=== PATIENT | female | born 1990 | race Hispanic/Latino ===

== ENCOUNTER 2017-04-02 17:23 | Emergency (ER) | payer OTHER ==
[2017-04-02 17:53] VITALS: BMI 37.8
[2017-04-02 17:57] VITALS: RESP 18; TEMP 98.2; O2SAT 100
--- NOTE | 2017-04-02 18:20 | ED PDOC ---
Arrival/HPI - General Chief Complaint: ENT Problem Time Seen by Provider: 04/02/17 17:59 Historian: Patient - History of Present Illness Narrative History of Present Illness (Text): 04/02/17 18:25 A 27 year old female presents to the emergency department complaining of 2 week duration of neck pain, left side worse than right. Patient reports pain radiates to head and began as an earache. Patient notes given Bactrim from doctor, and earache got better, but neck pain worsened. Patient reports has cervical lymphadenopathy but felt worse, had a CAT scan head done. Patient is a half pack a day smoker, occasional drinker but denies drug use. Patient denies any other complaints at this time. Time/Duration: Other (2 weeks) Symptom Onset: Sudden Symptom Course: Unchanged Activities at Onset: Rest Modifying Factors (Text): Bactrim helped earache, neck pain worse Context: Home Associated Symptoms (Text): 04/02/17 19:05 2 week history of left-sided greater than right-sided neck pain. She had a left sided earache which resolved with Bactrim DS. The pain radiates up into her head. She had a negative CT scan of the cervical spine ordered by her PMD. She is not getting any better and was directed to the emergency department for further evaluation and treatment. She does not appear to be in any distress.. Past Medical History - Provider Review Nursing Documentation Reviewed: Yes - Infectious Disease Hx of Infectious Diseases: None - Past Medical History Past Medical History: No Previous - Cardiac Hx [place]: No - Pulmonary Hx Respiratory Disorders: No - Neurological HX Cerebrovascular Accident: No Hx Seizures: No - HEENT Hx HEENT Disorder: No - Renal Hx Renal Disorder: No - Endocrine/Metabolic Hx Endocrine Disorders: No - Hematological/Oncological Hx Blood Disorders: No - Integumentary Hx Dermatological Disorder: No - Musculoskeletal/Rheumatological Hx Back Pain: No Hx Falls: No Hx Fractures: No - Gastrointestinal Hx Gastrointestinal Disorders: No - Genitourinary/Gynecological Hx Genitourinary Disorders: Yes Other/Comment: R Pelvic cyst found on current admission, endometriosis - Psychiatric Hx Psychophysiologic Disorder: No Hx Substance Use: No - Past Surgical History Past Surgical History: No Previous - Surgical History Other/Comment: sx on R sided ovarian cyst. - Anesthesia Hx Anesthesia: Yes Hx Anesthesia Reactions: No Hx Malignant Hyperthermia: No - Suicidal Assessment Feels Threatened In Home Enviroment: No Family/Social History - Physician Review Nursing Documentation Reviewed: Yes Family/Social History: No Known Family HX Smoking Status: Light Smoker < 10 Cigarettes Daily Hx Alcohol Use: No Hx Substance Use: No Hx Substance Use Treatment: No Allergies/Home Meds Allergies/Adverse Reactions: Allergies Penicillins Adverse Reaction (Verified 04/02/17 17:52) RASH Home Medications: Home Meds Medication Instructions Recorded Confirmed Norgestimate-Ethinyl Estradiol 1 tab PO DAILY 05/01/16 04/02/17 [Sprintec 35 Mcg-0.25 mg] Review of Systems - Physician Review All systems were reviewed & negative as marked: Yes - Review of Systems Constitutional: absent: Fatigue, Fevers Eyes: absent: Vision Changes ENT: Normal Respiratory: absent: SOB, Cough, Sputum Cardiovascular: Normal Gastrointestinal: Normal Genitourinary Female: Normal Musculoskeletal: Neck Pain (radiating to head) Neurological: Headache. absent: Dizziness, Focal Weakness, Gait Changes, Speech Changes, Facial Droop, Disequilibrium Physical Exam Vital Signs Reviewed: Yes Vital Signs Temp Pulse Resp BP Pulse Ox 04/02/17 17:56 98.2 F 77 18 134/92 H 100 Temperature: Afebrile Blood Pressure: Hypertensive Pulse: Regular Respiratory Rate: Normal Appearance: Positive for: Well-Appearing, Non-Toxic, Comfortable Pain Distress: None Mental Status: Positive for: Alert and Oriented X 3 - Systems Exam Head: Present: Atraumatic, Normocephalic Pupils: Present: PERRL Extroacular Muscles: Present: EOMI Conjunctiva: Present: Normal Ears: Present: NORMAL TM, Normal Canal. No: Erythema Mouth: Present: Moist Mucous Membranes Pharnyx: No: ERYTHEMA, EXUDATE, TONSILS ENLARGED Neck: Present: Normal Range of Motion. No: Meningeal Signs, MIDLINE TENDERNESS , Paraspinal Tenderness, Lymphadenopathy Respiratory/Chest: Present: Clear to Auscultation, Good Air Exchange. No: Respiratory Distress, Accessory Muscle Use Cardiovascular: Present: Regular Rate and Rhythm, Normal S1, S2. No: Murmurs Abdomen: Present: Normal Bowel Sounds. No: Tenderness, Distention, Peritoneal Signs Back: Present: Normal Inspection Upper Extremity: Present: Normal Inspection. No: Cyanosis, Edema Lower Extremity: Present: Normal Inspection. No: Edema Neurological: Present: GCS=15, CN II-XII Intact, Speech Normal, Motor Func Grossly Intact Skin: Present: Warm, Dry, Normal Color. No: Rashes Psychiatric: Present: Alert, Oriented x 3, Normal Insight, Normal Concentration Medical Decision Making ED Course and Treatment: 04/02/17 18:18 Impression: A 27 year old female with neck pain radiating to head. Plan: -- CT head -- labs -- Toradol -- Reassess and disposition Prior Visits: Notes and results from previous visits were reviewed. Patient last reported to the emergency department on 07/10/17 for evaluation of nausea and diarrhea. Patient was discharged. Progress Notes: CT head: Creator : Thomas Mcgill MD 04/02/2017 19:01 IMPRESSION: No acute hemorrhage. 04/02/17 20:15 On re-evaluation, patient feels better and is in no acute distress. I have discussed the results and plan with the patient, who expresses understanding. Patient in agreement with plan to be discharged home. Patient is stable for discharge. Patient was instructed to follow up with physician or return if symptoms worsen or new concerning symptoms arise. - Lab Interpretations Lab Results: 04/02/17 19:00 04/02/17 19:00 Lab Results 04/02/17 19:00: Sodium 134, Potassium 4.3, Chloride 104, Carbon Dioxide 22, Anion Gap 12, BUN 10, Creatinine 0.6, Est GFR ( Amer) > 60, Est GFR (Non- Af Amer) > 60, Random Glucose 82, Calcium 9.1, Magnesium 1.9, Total Bilirubin 0.3, AST 19, ALT 32, Alkaline Phosphatase 45, Total Protein 7.5, Albumin 3.9, Globulin 3.6, Albumin/Globulin Ratio 1.1 04/02/17 19:00: WBC 6.0 D, RBC 4.19, Hgb 12.1, Hct 35.2 L, MCV 84.0, MCH 28.9, MCHC 34.4, RDW 12.6, Plt Count 272, MPV 9.2, Gran % 57.2, Lymph % (Auto) 31.9, [place] % (Auto) 6.0, Eos % (Auto) 3.7, Baso % (Auto) 1.2, Gran # 3.45, Lymph # 1.9 , [place] # 0.4, Eos # 0.2, Baso # 0.07 I have reviewed the lab results: Yes - RAD Interpretation Radiology Orders: 04/02/17 18:14 HEAD W/O CONTRAST [CT] Stat - Medication Orders Current Medication Orders: Discontinued Medications Ketorolac Tromethamine (Toradol) 30 mg IVP ONCE ONE Stop: 04/02/17 18:16 Last Admin: 04/02/17 19:25 Dose: 30 mg - Scribe Statement The provider has reviewed the documentation as recorded by the Shady Quiroz Provider Scribe Attestation: All medical record entries made by the Scribe were at my direction and personally dictated by me. I have reviewed the chart and agree that the record accurately reflects my personal performance of the history, physical exam, medical decision making, and the department course for this patient. I have also personally directed, reviewed, and agree with the discharge instructions and disposition. Disposition/Present on Arrival - Present on Arrival Any Indicators Present on Arrival: No History of DVT/PE: No History of Uncontrolled Diabetes: No Urinary Catheter: No History of Decub. Ulcer: No History Surgical Site Infection Following: None - Disposition Have Diagnosis and Disposition been Completed?: Yes Diagnosis: Cervical muscle strain Disposition: HOME/ ROUTINE Disposition Time: 20:21 Patient Plan: Discharge Patient Problems: Current Active Problems Problem Status Onset Cervical muscle strain Acute Condition: GOOD Discharge Instructions (ExitCare): Cervical Strain (DC) Additional Instructions: Moist heat. Follow-up with PMD. Follow-up in the ER as needed. Prescriptions: Cyclobenzaprine [Flexeril] 5 mg PO Q8 #15 tab Naproxen [Naprosyn] 500 mg PO BID #14 tab Referrals: Karen Mcdermott MD [Primary Care Provider] - Follow up with primary
--- NOTE | 2017-04-02 19:01 | CT ---
PROCEDURE: CT HEAD WITHOUT CONTRAST. HISTORY: MELVIN COMPARISON: 05/01/2016 TECHNIQUE: Axial computed tomography images were obtained through the head/brain without intravenous contrast. Radiation dose: Total exam DLP = 677 mGy-cm. This CT exam was performed using one or more of the following dose reduction techniques: Automated exposure control, adjustment of the mA and/or kV according to patient size, and/or use of iterative reconstruction technique. FINDINGS: HEMORRHAGE: No intracranial hemorrhage. BRAIN: No mass effect or edema. No atrophy or chronic microvascular ischemic changes. 1 centimeter right choroidal fissure cyst. VENTRICLES: Unremarkable. No hydrocephalus. CALVARIUM: Unremarkable. PARANASAL SINUSES: Unremarkable as visualized. No significant inflammatory changes. MASTOID AIR CELLS: Unremarkable as visualized. No inflammatory changes. OTHER FINDINGS: None. IMPRESSION: No acute hemorrhage.
[2017-04-02 19:10] LABS: ADD MANUAL DIFF? NO
[2017-04-02 19:29] LABS: ALB/GLOB RATIO 1.1 (1.1-1.8); ALKALINE PHOSPHATASE 45 U/L (38-133); ALT/SGPT 32 U/L (7-56); AST/SGOT 19 U/L (15-39); BILIRUBIN,TOTAL 0.3 mg/dL (0.2-1.3); BLOOD UREA NITROGEN 10 mg/dL (7-21); CALCIUM 9.1 mg/dL (8.4-10.5); CARBON DIOXIDE 22 mmol/L (21-33); CHLORIDE 104 mmol/L (98-107); GFR AFRICAN-AMERICAN > 60; GLUCOSE,RANDOM 82 mg/dL (70-110); MAGNESIUM 1.9 mg/dL (1.7-2.2); POTASSIUM 4.3 mmol/L (3.6-5.0); SODIUM 134 mmol/L (132-148); TOTAL PROTEIN 7.5 g/dL (5.8-8.3)
[2017-04-02 19:31] LABS: BASO # 0.07 K/mm3 (0.0-2.0); BASO % 1.2 % (0.0-3.0); EOS # 0.2 (0.0-0.7); EOS % 3.7 % (1.5-5.0); GRAN # 3.45 (1.4-6.5); GRAN % 57.2 % (50.0-68.0); HEMATOCRIT 35.2 % (36.0-48.0); LYMPH # 1.9 (1.2-3.4); LYMPH % 31.9 % (22.0-35.0); MEAN CORPUSCULAR HEMOGLOBIN 28.9 pg (25.0-35.0); MEAN CORPUSCULAR HGB CONC 34.4 g/dl (31.0-37.0); MEAN PLATELET VOLUME 9.2 fl (7.0-11.0); MONO # 0.4 (0.1-0.6); PLATELET COUNT 272 10^3/uL (120.0-450.0); RED CELL DISTRIBUTION WIDTH 12.6 % (11.5-14.5)
[2017-04-02 21:28] VITALS: BP 129/84; PULSE 70
== END 2017-04-02 20:46 | disposition home or self-care (01) ==
LOC: ED 17:23
DX: S16.1XXA Strain of muscle, fascia and tendon at neck level, initial encounter (principal); X58.XXXA Exposure to other specified factors, initial encounter
CPT/HCPCS: 70450; 80053; 83735; 85025; 96374; 99283; J1885

== ENCOUNTER 2018-09-17 13:39 | Emergency (ER) | payer BC ==
[2018-09-17 13:40] VITALS: BMI 37.8
[2018-09-17 14:19] VITALS: RESP 18
--- NOTE | 2018-09-17 14:42 | ED PDOC ---
Arrival/HPI - General Chief Complaint: Headache Time Seen by Provider: 09/17/18 14:11 Historian: Patient - History of Present Illness Narrative History of Present Illness (Text): 09/17/18 14:33 28 year old female, with no significant past medical history and gestation of 16 weeks, presents to the Emergency Department complaining of headache and mouth sores since past couple days. Patient states headache starts from the back and radiates to the entirety of her head, similar to symptoms experienced for migraines. Additionally, patient informs sores to the top of her mouth but denies any other associated symptoms. Patient informs feeling anxious throughout her "worrying something is medically wrong with her". Patient reports having a MRI performed in jul with no significant findings. As per patient, her recent US shows normal gestational age and no complications. Patient denies any other associated somatic complaints. Patient denies any fever, chills, nausea, vomiting, diarrhea, abdominal pain, chest pain, shortness of breath, cough, dizziness, neck pain, back pain, vaginal discharge, vaginal bleeding, any obstetrics complaints or any other complaints. PMD: Dr. Moyer Neurologist: Dr. Rice 09/17/18 16:56 Time/Duration: < week Symptom Onset: Gradual Symptom Course: Unchanged Activities at Onset: Light Context: Home Past Medical History - Provider Review Nursing Documentation Reviewed: Yes - Infectious Disease Hx of Infectious Diseases: None - Reproductive Menopause: No - Past Medical History Past Medical History: No Previous - Cardiac Hx Cardiac Disorders: No Hx [place]: No - Pulmonary Hx Respiratory Disorders: No - Neurological HX Cerebrovascular Accident: No Hx Seizures: No - HEENT Hx HEENT Disorder: No - Renal Hx Renal Disorder: No - Endocrine/Metabolic Hx Endocrine Disorders: No - Hematological/Oncological Hx Blood Disorders: No - Integumentary Hx Dermatological Disorder: No - Musculoskeletal/Rheumatological Hx Back Pain: No Hx Falls: No Hx Fractures: No - Gastrointestinal Hx Gastrointestinal Disorders: No - Genitourinary/Gynecological Hx Genitourinary Disorders: Yes Other/Comment: R Pelvic cyst found on current admission, endometriosis - Psychiatric Hx Psychophysiologic Disorder: No Hx Substance Use: No - Past Surgical History Past Surgical History: No Previous - Surgical History Other/Comment: sx on R sided ovarian cyst. - Anesthesia Hx Anesthesia: Yes Hx Anesthesia Reactions: No Hx Malignant Hyperthermia: No - Suicidal Assessment Feels Threatened In Home Enviroment: No Family/Social History - Physician Review Nursing Documentation Reviewed: Yes Family/Social History: Unknown Family HX Smoking Status: Light Smoker < 10 Cigarettes Daily Hx Alcohol Use: No Hx Substance Use: No Hx Substance Use Treatment: No Allergies/Home Meds Allergies/Adverse Reactions: Allergies Penicillins Allergy (Verified 03/21/18 11:16) RASH Home Medications: Home Meds Medication Instructions Recorded Confirmed RX: No Known Home Med 09/17/18 09/17/18 Review of Systems - Physician Review All systems were reviewed & negative as marked: Yes - Review of Systems Constitutional: absent: Fevers Eyes: absent: Vision Changes ENT: Other (Mouth sores) Respiratory: absent: SOB, Cough Cardiovascular: absent: Chest Pain Gastrointestinal: absent: Abdominal Pain, Diarrhea, Nausea, Vomiting Genitourinary Female: absent: Vaginal Bleeding, Vaginal Discharge Musculoskeletal: absent: Back Pain, Neck Pain Skin: absent: Rash Neurological: Headache. absent: Dizziness Physical Exam Vital Signs Reviewed: Yes Vital Signs Temp Pulse Resp BP Pulse Ox 09/17/18 14:14 97.8 F 97 H 18 138/87 98 Temperature: Afebrile Blood Pressure: Normal Pulse: Regular Respiratory Rate: Normal Appearance: Positive for: Well-Appearing, Non-Toxic, Comfortable Pain Distress: None Mental Status: Positive for: Alert and Oriented X 3 - Systems Exam Head: Present: Atraumatic, Normocephalic Pupils: Present: PERRL Extroacular Muscles: Present: EOMI Conjunctiva: Present: Normal Mouth: Present: Moist Mucous Membranes, Other (Vesicular sores on the upper oropharynx noted) Neck: Present: Normal Range of Motion Respiratory/Chest: Present: Clear to Auscultation, Good Air Exchange. No: Respiratory Distress, Accessory Muscle Use Cardiovascular: Present: Regular Rate and Rhythm, Normal S1, S2. No: Murmurs Abdomen: No: Tenderness, Distention, Peritoneal Signs Back: Present: Normal Inspection Upper Extremity: Present: Normal Inspection. No: Cyanosis, Edema Lower Extremity: Present: Normal Inspection. No: Edema Neurological: Present: GCS=15, CN II-XII Intact, Speech Normal Skin: Present: Warm, Dry, Normal Color. No: Rashes Psychiatric: Present: Alert, Oriented x 3, Normal Insight, Normal Concentration Medical Decision Making ED Course and Treatment: 09/17/18 14:46 Impression: 28 year old female presents to the Emergency Department complaining of headache and mouth sores. Plan: -- Tylenol -- Reassess and disposition Prior Visits: Notes and results from previous visits were reviewed. Progress Notes: 09/17/18 16:57 case discussed with pt neuro dr rice. outpt mri neg. cerbral venous throbosis less liekly given negrecent mri. agrees with outpt fu. suspect coxsackie, viral syndrome. - Scribe Statement The provider has reviewed the documentation as recorded by the Scribe Cammie Flores. All medical record entries made by the Scribe were at my direction and personally dictated by me. I have reviewed the chart and agree that the record accurately reflects my personal performance of the history, physical exam, medical decision making, and the department course for this patient. I have also personally directed, reviewed, and agree with the discharge instructions and disposition. Disposition/Present on Arrival - Present on Arrival Any Indicators Present on Arrival: No History of DVT/PE: No History of Uncontrolled Diabetes: No Urinary Catheter: No History of Decub. Ulcer: No History Surgical Site Infection Following: None - Disposition Have Diagnosis and Disposition been Completed?: Yes Diagnosis: Headache, Mouth sores, Viral syndrome Disposition: HOME/ ROUTINE Disposition Time: 16:00 Condition: FAIR Discharge Instructions (ExitCare): Headache, Adult (DC) Additional Instructions: return to er with worsening symptoms or concerns. please follow up with your doctor/clinic. Referrals: Comfort MORAN,Ketan Conroy MD [Primary Care Provider] - Follow up with primary Yasmani Rice MD [Staff Provider] - Follow up with primary Forms: [facility] ([place])
[2018-09-17 16:03] VITALS: BP 131/63; PULSE 83; TEMP 98.2; O2SAT 100
== END 2018-09-17 16:03 | disposition home or self-care (01) ==
LOC: ED 13:39
DX: B34.9 Viral infection, unspecified (principal); K13.79 Other lesions of oral mucosa; R51 Headache

== ENCOUNTER 2018-11-03 16:32 | Emergency (ER) | payer BC ==
[2018-11-03 16:35] VITALS: BMI 41.1
[2018-11-03 16:40] VITALS: TEMP 98.1
[2018-11-03] MEDS ORDERED: Sodium Chloride 0.9% 1,000 ML IV STA (17:15)
[2018-11-03 17:57] LABS: URINE BILIRUBIN NEGATIVE (NEGATIVE); URINE BLOOD NEGATIVE (NEGATIVE); URINE GLUCOSE (UA) NEGATIVE (NEGATIVE); URINE LEUKOCYTE ESTERASE NEGATIVE Leu/uL (NEGATIVE); URINE PROTEIN NEGATIVE mg/dL (<30 mg/dL); URINE UROBILINOGEN 0.2 E.U./dL (<1 E.U./dL)
[2018-11-03 18:02] LABS: URINE APPEARANCE CLEAR (CLEAR); URINE COLOR LIGHT YELLOW (YELLOW)
[2018-11-03 18:03] LABS: BASO # 0.02 K/mm3 (0.0-2.0); BASO % 0.2 % (0.0-3.0); EOS # 0.1 (0.0-0.7); EOS % 0.7 % (1.5-5.0); GRAN # 9.04 (1.4-6.5); GRAN % 77.9 % (50.0-68.0); HEMOGLOBIN 10.7 g/dL (12.0-16.0); LYMPH # 1.9 (1.2-3.4); LYMPH % 16.5 % (22.0-35.0); MEAN CELL VOLUME 85.2 fl (80.0-105.0); MEAN CORPUSCULAR HEMOGLOBIN 27.8 pg (25.0-35.0); MEAN CORPUSCULAR HGB CONC 32.6 g/dl (31.0-37.0); MEAN PLATELET VOLUME 9.3 fl (7.0-11.0); MONO # 0.5 (0.1-0.6); MONO % 4.7 % (1.0-6.0); RBC 3.85 10^6/uL (3.5-6.1); RED CELL DISTRIBUTION WIDTH 13.1 % (11.5-14.5); WHITE BLOOD COUNT 11.6 10^3/uL (4.5-11.0)
[2018-11-03 18:20] LABS: ALBUMIN 3.7 g/dL (3.0-4.8); ALT/SGPT 21 U/L (7-56); AST/SGOT 17 U/L (14-36); BLOOD UREA NITROGEN 8 mg/dL (7-21); CALCIUM 9.1 mg/dL (8.4-10.5); GFR NON-AFRICAN AMERICAN > 60
--- NOTE | 2018-11-03 18:21 | ED PDOC ---
Arrival/HPI - General Chief Complaint: Eye Problem Time Seen by Provider: 11/03/18 16:50 - History of Present Illness Narrative History of Present Illness (Text): 11/03/18 18:16 28 f, 5 months , presents to the ED with constant, waxing and waning right eye pain, on going for several weeks, described as sharp in nature, has not changed in character since onset. Patient states that she has been seen by ENT and was prescribed zpak for "inflammation of the sinuses".Patient states that she was seen by neurology dr. yasmani rice, had a negative MRI. Patient states that she frequently rubs her eye in attempt to get relief. Patient denies any visual disturbance, no fever, no weakness, no numbness, no ear pain, no double vision, no blurred vision, no chest pain. 11/03/18 18:30 Past Medical History - Infectious Disease Hx of Infectious Diseases: None - Past Medical History Past Medical History: No Previous - Cardiac Hx Cardiac Disorders: No - Pulmonary Hx Respiratory Disorders: No - Neurological Hx Neurological Disorder: No - HEENT Hx HEENT Disorder: No - Renal Hx Renal Disorder: No - Endocrine/Metabolic Hx Endocrine Disorders: No - Hematological/Oncological Hx Blood Disorders: No - Integumentary Hx Dermatological Disorder: No - Musculoskeletal/Rheumatological Hx Musculoskeletal Disorders: No - Gastrointestinal Hx Gastrointestinal Disorders: No - Genitourinary/Gynecological Hx Genitourinary Disorders: Yes Other/Comment: Hx of Endometriosis - Psychiatric Hx Psychophysiologic Disorder: No Hx Substance Use: No - Past Surgical History Past Surgical History: No Previous - Surgical History Other/Comment: sx on R sided ovarian cyst. - Anesthesia Hx Anesthesia: Yes Hx Anesthesia Reactions: No Hx Malignant Hyperthermia: No - Suicidal Assessment Feels Threatened In Home Enviroment: No Family/Social History Family/Social History: No Known Family HX Smoking Status: Light Smoker < 10 Cigarettes Daily Hx Alcohol Use: No Hx Substance Use: No Hx Substance Use Treatment: No Allergies/Home Meds Allergies/Adverse Reactions: Allergies Penicillins Allergy (Verified 03/21/18 11:16) RASH Home Medications: Home Meds Medication Instructions Recorded Confirmed No Known Home Med 09/17/18 09/17/18 Review of Systems - Physician Review All systems were reviewed & negative as marked: Yes Physical Exam - Physical Exam Narrative Physical Exam (Text): 11/03/18 18:31 Gen: VS reviewed, alert, well developed, well nourished, nontoxic, mild distress Eye: EOMI, PERRL , no conjunctival redness, no tenderness over the right bony eye Neck: no JVD, supple, no adenopathy CV: regular rate, regular rhythm, no rubs,no murmur, S1, S2 Pulm: no distress, clear to auscultation, no wheeze, no rhonchi, breath sounds equal, no rales Ext: no edema Skin: good color, no rash, no cyanosis Psych: responds appropriately to questions, normal affect Vital Signs Temp Pulse Resp BP Pulse Ox 11/03/18 16:32 98.1 F 89 18 140/90 98 Medical Decision Making ED Course and Treatment: 11/03/18 18:20 case discussed in extensive detail with dr. yasmani rice. he states he knows the patient very well and that the patient's presentation is likely consistent with migraine type headache. he recommends a trial treatment with magnesium 2g iv infusion. he recommends the patient can go home with a rx for mrv and that he will personally follow up with the mrv result. i have also explained to the patient that she should call dr. rice tomorrow to ensure that the mri can be expedited. patient and family at bedside are agreeable to plan and that they will return immediately for new or worsening symptoms. rx for mrv given to patient. 11/03/18 19:12 case endorsed to , follow up eval and disposition. 11/03/18 19:33 - Lab Interpretations Lab Results: 11/03/18 17:48 Lab Results 11/03/18 17:48: WBC 11.6 H, RBC 3.85, Hgb 10.7 L, Hct 32.8 L, MCV 85.2, MCH 27.8, MCHC 32.6, RDW 13.1, Plt Count 280, MPV 9.3, Gran % 77.9 H, Lymph % (Auto) 16.5 L, [place] % (Auto) 4.7, Eos % (Auto) 0.7 L, Baso % (Auto) 0.2, Gran # 9.04 H, Lymph # (Auto) 1.9, [place] # (Auto) 0.5, Eos # (Auto) 0.1, Baso # (Auto) 0.02 11/03/18 17:34: Urine Color Light yellow, Urine Appearance Clear, Urine pH 7.0, Ur Specific [place] 1.020, Urine Protein Negative, Urine Glucose (UA) Negative, Urine Ketones Negative, Urine Blood Negative, Urine Nitrate Negative, Urine Bilirubin Negative, Urine Urobilinogen 0.2, Ur Leukocyte Esterase Negative - Medication Orders Current Medication Orders: Discontinued Medications Sodium Chloride (Sodium Chloride 0.9%) 1,000 mls @ 999 mls/hr IV .Q1H1M STA Stop: 11/03/18 18:15 Last Admin: 11/03/18 17:52 Dose: 999 mls/hr eMAR Start Stop Document 11/03/18 17:52 KV (Rec: 11/03/18 17:52 KV [id number] Intravenous Solution Start Date 11/03/18 Start Time 17:52 Disposition/Present on Arrival - Present on Arrival Any Indicators Present on Arrival: No History of DVT/PE: No History of Uncontrolled Diabetes: No Urinary Catheter: No History of Decub. Ulcer: No History Surgical Site Infection Following: None - Disposition Have Diagnosis and Disposition been Completed?: Yes Diagnosis: Headache Disposition: HOME/ ROUTINE Patient Problems: Current Active Problems Problem Status Onset Headache Acute Discharge Instructions (ExitCare): Migraine Headache (DC) Additional Instructions: Return immediately for any new or worsening symptoms. Call your doctor tomorrow to make a follow up appointment. TANO LUIS, thank you for letting us take care of you today. Your provider was Thomas Schulte MD and Dr. Hollis Mortensen and you were treated for headache. The emergency medical care you received today was directed at your acute symptoms. If you were prescribed any medication, please fill it and take as directed. It may take several days for your symptoms to resolve. Return to the Emergency Department if your symptoms worsen, do not improve, or if you have any other problems. Please contact your doctor or call one of the physicians/clinics you have been referred to that are listed on the Patient Visit Information form that is included in your discharge packet. Bring any paperwork you were given at discharge with you along with any medications you are taking to your follow up visit. Our treatment cannot replace ongoing medical care by a primary care provider outside of the emergency department. Thank you for allowing the [facility] team to be part of your care today. If you had an X-Ray or CT scan: A Radiologist will review the ED reading if any change in treatment is needed we will contact you. If you had a blood, urine, or wound culture: It will take several days for the results, if any change in treatment is needed we will contact you. If you had an STI test: It will take 48 hours for the results. Please call after 1 week if you have not heard back. Referrals: Comfort MORAN,Ketan Conroy MD [Primary Care Provider] - Follow up with primary Yasmnai Rice MD [Staff Provider] - Follow up with primary Forms: [facility] (Portuguese), WORK NOTE
[2018-11-03] MEDS ORDERED: Magnesium Sulfate 2 gm/50 ml 2 GM/50 ML BAG IVPB ONE (18:53)
[2018-11-03 20:13] VITALS: BP 129/87; PULSE 93; RESP 16; O2SAT 100
--- NOTE | 2018-11-03 20:25 | ED PDOC ---
Physical Exam Vital Signs Reviewed: Yes Vital Signs Temp Pulse Resp BP Pulse Ox 11/03/18 20:12 93 H 16 129/87 100 11/03/18 18:16 135/76 11/03/18 16:32 98.1 F 89 18 140/90 98 Temperature: Afebrile Blood Pressure: Normal Pulse: Regular Respiratory Rate: Normal Appearance: Positive for: Well-Appearing, Non-Toxic Mental Status: Positive for: Alert and Oriented X 3 Medical Decision Making ED Course and Treatment: 11/03/18 19:25 case endorsed to me from Dr. Mortensen. pt undergoing treatment for migraine headache, which she has had intermittently for several weeks. has been under the care of neurologist. She has undergone MRI studies, all negative. Pt here in the emergency department was administered magnesium sulfate, as per the neurologist according to Dr. Mortensen. Awaiting patient's response to treatment prior to discharge. Pt was given follow up care instructions prior by Dr. Mortensen. 11/03/18 20:25 pt feels fine. will discharge for follow up as previously instructed with her doctor. - Lab Interpretations Lab Results: 11/03/18 17:48 11/03/18 17:48 Lab Results 11/03/18 17:48: Sodium 135, Potassium 4.0, Chloride 108 H, Carbon Dioxide 21, Anion Gap 10, BUN 8, Creatinine 0.5 L, Est GFR ( Amer) > 60, Est GFR (Non-Af Amer) > 60, Random Glucose 99, Calcium 9.1, Magnesium 1.7, Total Bilirubin 0.1 L, AST 17, ALT 21, Alkaline Phosphatase 68, Total Protein 7.3, Albumin 3.7, Globulin 3.6, Albumin/Globulin Ratio 1.0 L 11/03/18 17:48: WBC 11.6 H, RBC 3.85, Hgb 10.7 L, Hct 32.8 L, MCV 85.2, MCH 27.8, MCHC 32.6, RDW 13.1, Plt Count 280, MPV 9.3, Gran % 77.9 H, Lymph % (Auto) 16.5 L, Johnston % (Auto) 4.7, Eos % (Auto) 0.7 L, Baso % (Auto) 0.2, Gran # 9.04 H, Lymph # (Auto) 1.9, Johnston # (Auto) 0.5, Eos # (Auto) 0.1, Baso # (Auto) 0.02 11/03/18 17:34: Urine Color Light yellow, Urine Appearance Clear, Urine pH 7.0, Ur Specific [place] 1.020, Urine Protein Negative, Urine Glucose (UA) Negative, Urine Ketones Negative, Urine Blood Negative, Urine Nitrate Negative, Urine Bilirubin Negative, Urine Urobilinogen 0.2, Ur Leukocyte Esterase Negative - Medication Orders Current Medication Orders: Discontinued Medications Acetaminophen (Tylenol 325mg Tab) 975 mg PO STAT STA Stop: 11/03/18 18:54 Last Admin: 11/03/18 19:14 Dose: 975 mg MAR Pain/Vitals Document 11/03/18 19:14 KV (Rec: 11/03/18 19:15 K[facility]-[id number]) Pain Reassessment Is This A Pain ReAssessment? Yes Sleep Is patient sleeping during reassessment? No Presence of Pain Presence of Pain Yes Pain Scale Used Protocol: PSCALES Pain Scale Used Numeric Location Left, Right or Bilateral Right Pain Location Body Site Eye Description Constant Intensity 8 Scale Used Numeric Sodium Chloride (Sodium Chloride 0.9%) 1,000 mls @ 999 mls/hr IV .Q1H1M STA Stop: 11/03/18 18:15 Last Admin: 11/03/18 17:52 Dose: 999 mls/hr eMAR Start Stop Document 11/03/18 17:52 KV (Rec: 11/03/18 17:52 [facility]-21) Intravenous Solution Start Date 11/03/18 Start Time 17:52 Magnesium Sulfate (Magnesium Sulfate 2 Gm/50 Ml Water) 2 gm in 50 mls @ 50 mls/hr IVPB ONCE ONE Stop: 11/03/18 19:52 Last Admin: 11/03/18 19:13 Dose: 50 mls/hr eMAR Start Stop Document 11/03/18 19:13 KV (Rec: 11/03/18 19:14 [facility]-21) Intravenous Solution Start Date 11/03/18 Start Time 19:14 - Scribe Statement The provider has reviewed the documentation as recorded by the Scribe Polly Walters All medical record entries made by the Scribe were at my direction and personally dictated by me. I have reviewed the chart and agree that the record accurately reflects my personal performance of the history, physical exam, medical decision making, and the department course for this patient. I have also personally directed, reviewed, and agree with the discharge instructions and disposition. Disposition/Present on Arrival - Present on Arrival Any Indicators Present on Arrival: No History of DVT/PE: No History of Uncontrolled Diabetes: No Urinary Catheter: No History of Decub. Ulcer: No History Surgical Site Infection Following: None - Disposition Have Diagnosis and Disposition been Completed?: Yes Diagnosis: Headache Disposition: HOME/ ROUTINE Disposition Time: 20:30 Patient Plan: Discharge Condition: GOOD Discharge Instructions (ExitCare): Migraine Headache (DC) Additional Instructions: Return immediately for any new or worsening symptoms. Call your doctor tomorrow to make a follow up appointment. TANO LUIS, thank you for letting us take care of you today. Your provider was Thomas Schulte MD and Dr. Hollis Mortensen and you were treated for headache. The emergency medical care you received today was directed at your acute symptoms. If you were prescribed any medication, please fill it and take as directed. It may take several days for your symptoms to resolve. Return to the Emergency Department if your symptoms worsen, do not improve, or if you have any other problems. Please contact your doctor or call one of the physicians/clinics you have been referred to that are listed on the Patient Visit Information form that is included in your discharge packet. Bring any paperwork you were given at discharge with you along with any medications you are taking to your follow up visit. Our treatment cannot replace ongoing medical care by a primary care provider outside of the emergency department. Thank you for allowing the [facility] team to be part of your care today. If you had an X-Ray or CT scan: A Radiologist will review the ED reading if any change in treatment is needed we will contact you. If you had a blood, urine, or wound culture: It will take several days for the results, if any change in treatment is needed we will contact you. If you had an STI test: It will take 48 hours for the results. Please call after 1 week if you have not heard back. Referrals: Comfort MORAN,Ketan Conroy MD [Primary Care Provider] - Follow up with primary Yasmani Black MD [Staff Provider] - Follow up with primary Forms: [employer] (Korean), WORK NOTE
== END 2018-11-03 20:37 | disposition home or self-care (01) ==
LOC: ED 16:32
DX: R51 Headache (principal); F17.210 Nicotine dependence, cigarettes, uncomplicated
CPT/HCPCS: 80053; 81003; 83735; 85025; 99284; J7030

== ENCOUNTER 2018-12-21 15:00 | Outpatient (CLI) | payer BC | END 2018-12-21 15:01 | disposition home or self-care (01) | LOC: RAD 15:00 ==

== ENCOUNTER 2019-03-22 13:04 | Outpatient (CLI) | payer BC, OTHER | END 2019-03-22 13:05 | disposition home or self-care (01) | LOC: RAD 13:04 ==